=== PATIENT | female | born 1995 | race Caucasian/White ===

== ENCOUNTER 2017-02-19 09:48 | Emergency (ER) | payer OTHER ==
[2017-02-19 09:48] VITALS: BMI 32.2
[2017-02-19 10:03] VITALS: RESP 16; TEMP 98; O2SAT 100
[2017-02-19 12:04] LABS: RBC URINE 4 /hpf (0-3); URINE BACTERIA RARE (<OCC); URINE BILIRUBIN NEGATIVE (NEGATIVE); URINE BLOOD NEGATIVE (NEGATIVE); URINE COLOR Yellow (YELLOW); URINE GLUCOSE (UA) NORMAL (Normal); URINE KETONE NEGATIVE (NEGATIVE); URINE LEUKOCYTE ESTERASE NEG Leu/uL (Negative); URINE PROTEIN 2+ mg/dL (NEGATIVE); URINE UROBILINOGEN NORMAL mg/dL (0.2-1.0); WBC URINE 2 /hpf (0-5)
--- NOTE | 2017-02-19 13:00 | C.PDOC ---
History Of Present Illness 22-year-old female, currently 16-weeks (), sent to ED by her ob/ capsule machine operator because he was unable to auscultate heart tones. Patient has not had outpatient ultrasound since her cattle driver visit. She denies abdominal pain, nausea /vomiting, diarrhea, fever, dysuria/hematuria, vaginal bleeding/discharge, chest pain, SOB. Time Seen by Provider: 02/19/17 10:07 Chief Complaint (Nursing): Medical Clearance History Per: Patient History/Exam Limitations: no limitations Severity: None Past Medical History Reviewed: Historical Data, Nursing Documentation, Vital Signs Vital Signs: Last Vital Signs Temp 98.0 F 02/19/17 10:02 Pulse 60 02/19/17 13:27 Resp 16 02/19/17 13:27 BP 107/70 02/19/17 13:27 Pulse Ox 100 02/19/17 13:27 - Medical History PMH: No Chronic Diseases - [facility] Procedures DELIVERY OF PRODUCTS OF CONCEPTION, EXTERNAL APPROACH (12/28/15) EPISIOTOMY (07/05/13) REPAIR FEMALE PERINEUM, EXTERNAL APPROACH (12/28/15) Family History: States: No Known Family Hx - Social History Hx Alcohol Use: No Hx Substance Use: No Review Of Systems Except As Marked, All Systems Reviewed And Found Negative. Constitutional: Negative for: Fever, Chills Cardiovascular: Negative for: Chest Pain, Palpitations Respiratory: Negative for: Cough, Shortness of Breath Gastrointestinal: Negative for: Nausea, Vomiting, Abdominal Pain, Diarrhea Genitourinary: Negative for: Dysuria, Frequency, Hematuria, Vaginal Discharge, Vaginal Bleeding Physical Exam - Physical Exam Appears: Well, Non-toxic, No Acute Distress Skin: Warm, Dry, No Rash Eye(s): bilateral: Normal Inspection Oral Mucosa: Moist Cardiovascular: Rhythm Regular Respiratory: Normal Breath Sounds, No Rales, No Rhonchi, No Wheezing Gastrointestinal/Abdominal: Normal Exam, Bowel Sounds, Soft, No Tenderness ((+) gravid), No Distention, No Guarding, No Rebound Back: Normal Inspection, No CVA Tenderness Extremity: Normal ROM Neurological/Psych: Oriented x3 ED Course And Treatment O2 Sat by Pulse Oximetry: 100 (RA) Pulse Ox Interpretation: Normal - CT Scan/US US PELVIC Other Rad Studies (CT/US): Read By Radiologist, Radiology Report Reviewed CT/US Interpretation: Accession No. : [id number]. Patient Name / ID : SARBJIT WEINER / [id number]. Exam Date : 02/19/2017 12:25:45 ( Approved ). Study Comment : Sex / Age : F / 22Y. Creator : Alexandria Russell MD. Dictator : Alexandria Russell MD. Sonar Watchstander : Welding Foreman : Alexandria Russell MD. Approver2 : Report Date : 02/19/2017 13:01:38. My Comment : . OB , limited. Comparison: None available. Technique: Real-time ultrasound was performed through the pelvis. Findings: There is a single living fetus in breech presentation. Anterior placenta. The placenta is not previa. There are no adnexal masses or cysts evident. Cervix length measures approximately 3.1 cm. Measurements and calculations: Fetus has a composite sonographic age of 15 weeks 0 days. This calculation is based on the biparietal diameter, head circumference, abdominal circumference, and femur length. Estimated heart rate 165.9 beats per min. Impression: Single living fetus with a composite sonographic age of 15 weeks 0 days. Estimated heart rate 165.9 beats per min. Advise an anomaly screen at 16-18 weeks gestational age. Progress Note: Beta quant, UA, and OB US ordered and reviewed. Reevaluation Time: 13:20 Reassessment Condition: Improved (On reassessment, patient is resting comfortably, has no symptoms. US shows 15 wk IUP with HR 165bpm. UA (-) for UTI, and beta appropriately elevated. Patient instructed to follow up with her cattle driver within 1 week. She understands she should return to Ed if she develops concerning symptoms.) Disposition Counseled Patient/Family Regarding: Studies Performed, Diagnosis, Need For Followup - Disposition Referrals: Edgar Mosley MD [Staff Provider] - Disposition: HOME/ ROUTINE Disposition Time: 13:20 Condition: STABLE Additional Instructions: FOLLOW UP WITH [employer] PROP[employer] ASSESSMENT MONITOR WITHIN 1 WEEK RETURN TO ER IF YOU HAVE ANY CONCERNING SYMPTOMS Instructions: (ED) Print Language: ITALIAN - POA Present On Arrival: None - Clinical Impression Clinical Impression: , Medical assessment - Scribe Statement The provider has reviewed the documentation as recorded by the Yovannyiblita Santo All medical record entries made by the Yovannyiblita were at my direction and personally dictated by me. I have reviewed the chart and agree that the record accurately reflects my personal performance of the history, physical exam, medical decision making, and the department course for this patient. I have also personally directed, reviewed, and agree with the discharge instructions and disposition.
--- NOTE | 2017-02-19 13:03 | US ---
OB , limited Comparison: None available Technique: Real-time ultrasound was performed through the pelvis. Findings: There is a single living fetus in breech presentation. Anterior placenta. The placenta is not previa. There are no adnexal masses or cysts evident. Cervix length measures approximately 3.1 cm. Measurements and calculations: Fetus has a composite sonographic age of 15 weeks 0 days. This calculation is based on the biparietal diameter, head circumference, abdominal circumference, and femur length. Estimated heart rate 165.9 beats per min. Impression: Single living fetus with a composite sonographic age of 15 weeks 0 days Estimated heart rate 165.9 beats per min. Advise an anomaly screen at 16-18 weeks gestational age.
[2017-02-19 13:27] VITALS: BP 107/70; PULSE 60
== END 2017-02-19 13:27 | disposition home or self-care (01) ==
LOC: C.ER 09:48
DX: Z03.79 Encounter for other suspected maternal and fetal conditions ruled out (principal)

== ENCOUNTER 2017-08-14 18:49 | Emergency (ER) | payer SELFPAY ==
--- NOTE | 2017-08-14 19:37 | OBHP ---
Datetime: 08/14/2017 19:27 IP Adm Impression: Postterm, intrauterine IP Adm Impression Other: nst reactive; bpp 8/8 IP Admit Plan: Discharge home Admit Comment, IP Provider: chief complaint- evaluation HPI Patient is a at 40.1 wga here for nst .patientw as seen in clinic and as per patient was on monitor for 8 min and was told that she has nonreactive tracing Patient denies ctx, vaginal bleeding or loss of fluid course uncomplicated PMH denies PSH denies OBGYN HX ; NVDX2 Social hx denies tobacco,alcohol or illicit drug use Exam see exam section bedisde scan bpp 8/8; fernie 10.1 A/P 22 y/o at 40.1 wga here for evalaution.nst reactive.bpp 8/8. -patient discharged home -labor, bleeding, decreased movement precautions given Pelvic Type - PN: Adequate Extremities - PN: Normal Abdomen - PN: Normal Back - PN: Normal Lungs - PN: Normal Heart - PN: Normal Neurologic - PN: Normal General - PN: Normal Weight - Estimated: 3200 Presentation-Admit: Vertex Contraction Comments Provider: irregular IP Hx Assessment: The History has been Reviewed and is Current EGA AdmitDate IP: 40.1 Vital Signs Provider: Reviewed; Within Normal Limits IP Chief Complaint: evaluation FHR Category Provider Fetus A: Category I Dilatation, Provider: ft Effacement, Provider: 50 Station, Provider: -3 Genitourinary Exam: Normal DTRs - PN: Normal
[2017-08-14 23:58] VITALS: BP 117/70; PULSE 60
== END 2017-08-14 19:55 | disposition home or self-care (01) ==
LOC: C.EROB 18:49
DX: Z36.89 Encounter for other specified antenatal screening (principal)